=== PATIENT | female | born 1945 | race Caucasian/White ===

== ENCOUNTER 2017-09-01 10:45 | Emergency (ER) | payer MEDICARE ==
[~2017-09-01] VITALS: Ht 167.6 cm; Wt 54.9 kg
[2017-09-01] MEDS ORDERED: ASPIRIN 325 MG TABLET PO ONE (11:00)
[2017-09-01] MEDS ORDERED: NITROGLYCERIN 0.4 MG/TAB BOTTLE SL ONE ×2 (11:00→11:05)
[2017-09-01] MEDS ORDERED: ASPIRIN 325 MG TABLET ONE (11:05)
[2017-09-01 11:06] VITALS: BP 166/116
--- NOTE | 2017-09-01 11:14 | NUR ---
Pt states she is pain free at this time. Pt was given NTG 0.4mg SL x 1.
[2017-09-01 11:23] LABS: CARBON DIOXIDE 30 mmol/L (21-32); CHLORIDE 104 mmol/L (98-107); CREATININE 0.8 mg/dL (0.6-1.3); GLUCOSE 89 mg/dL (74-106); POTASSIUM 3.8 mmol/L (3.5-5.1); UREA NITROGEN, BLOOD 22 mg/dL (7-18)
[2017-09-01 11:25] LABS: BASOPHILS % (AUTO) 0.8 % (0.0-2.0); EOSINOPHILS # (AUTO) 0.1 K/uL (0.0-0.7); EOSINOPHILS % (AUTO) 1.8 % (0.0-7.0); HEMATOCRIT 42.5 % (31.2-41.9); HEMOGLOBIN 14.5 g/dL (10.9-14.3); LYMPHOCYTES # (AUTO) 1.9 K/uL (20.0-40.0); MEAN CORPUSCULAR HEMOGLOBIN 29.4 uug (24.7-32.8); MEAN CORPUSCULAR HGB CONC 34 g/dL (32.3-35.6); MEAN CORPUSCULAR VOLUME 86.1 fL (75.5-95.3); MONOCYTES # (AUTO) 0.4 K/uL (2.0-10.0); NEUTROPHILS # (AUTO) 3.2 K/uL (1.8-8.9); NEUTROPHILS % (AUTO) 56.4 % (38.5-71.5); PLATELET COUNT (AUTO) 186 K/uL (179-408); RED BLOOD CELL COUNT(AUTO) 4.93 MIL/uL (3.63-4.92); WHITE BLOOD COUNT (AUTO) 5.7 K/uL (3.8-11.8)
[2017-09-01 11:29] LABS: ALANINE AMINOTRANSFERASE 38 U/L (14-59); ALKALINE PHOSPHATASE 49 U/L (50-136); ASPARTATE AMINOTRANSFERASE 27 U/L (15-37); BILIRUBIN,DIRECT 0.2 mg/dL (0.0-0.2); BILIRUBIN,TOTAL 1.1 mg/dL (0.2-1.0); TOTAL PROTEIN, SERUM 7.6 g/dL (6.4-8.2)
--- NOTE | 2017-09-01 11:51 | NUR ---
IV removed. Catheter intact and site benign. Pressure and 4x4 gauze applied to site. No bleeding noted. Copies of the diagnostic tests results were provided to the patient.Patient discharged to home in stable conditon & steady gait. Written and verbal after care instructions given to patient and spouse. Patient verbalizes understanding of instructions.
== END 2017-09-01 11:52 | disposition home or self-care (01) ==
LOC: ER 10:45
DX: R07.89 Other chest pain (principal); E78.5 Hyperlipidemia, unspecified
CPT/HCPCS: 36415; 71045; 80048; 80076; 84484; 85025; 85730; 93005; 99285; A4663; 70030-TC